=== PATIENT | male | born 2000 | race Caucasian/White ===

== ENCOUNTER 2024-07-17 13:11 | Emergency (ER) | payer OTHER, SELFPAY ==
[2024-07-17 13:26] VITALS: BP 121/68; PULSE 78; RESP 17; TEMP 36.4; O2SAT 98; BMI 32.1
--- NOTE | 2024-07-17 13:27 | ED.WOUNDLAC ---
HPI - Wound/Laceration <Delia Chu PA-C - Last Filed: 07/17/24 17:43> General Chief Complaint: Wound/Laceration Stated Complaint: hand laceration Time Seen by Provider: 07/17/24 13:25 History of Present Illness HPI narrative: Patient is a very pleasant 24-year-old male presents to the emergency room department today with a laceration of the base of his right thumb. Patient right-hand dominant. Patient was washing dishes today. He was holding a glass in his right hand, was very slippery and wet and so be. He had quite the batteryman on it. He went to wash it on the inside when instep shadowing in his hand. He sustained a laceration to the base of his right thumb. And then a superficial laceration on his left thumb. The hand was washed prior to being seen here in the emergency room department. He has no other physical complaints. Up-to-date in his immunizations. Related Data Allergies Allergy/AdvReac Type Severity Reaction Status Date / Time No Known Drug Allergies Allergy Verified 07/17/24 13:31 Review of Systems <Delia Chu PA-C - Last Filed: 07/17/24 17:43> Review of Systems Narrative: negative except as above Integumentary/Breasts Comments: Skin laceration at the base of the right thumb. Small superficial laceration the tip of the left thumb. Patient History <Delia Chu PA-C - Last Filed: 07/17/24 17:43> Social History Smoking Status: Never smoker Exam <Delia Chu PA-C - Last Filed: 07/17/24 17:43> Initial Vital Signs Initial Vital Signs: Vital Signs Temperature 97.5 F L 07/17/24 13:26 Pulse Rate 78 07/17/24 13:26 Respiratory Rate 17 07/17/24 13:26 Blood Pressure 121/68 07/17/24 13:26 Pulse Oximetry 98 07/17/24 13:26 Oxygen Delivery Method Room Air 07/17/24 13:26 Const General: cooperative, healthy appearing, comfortable, well developed, well groomed and anxious Eyes Pupils: PERRL EOM: EOM intact bilaterally Skin Other: Superficial laceration to the distal aspect of the left thumb does not need to be sutured Laceration to the base of the right thumb, 2 cm in length. Not full-thickness. Does not involve the tendon or the ligaments. Neuro General: patient alert, patient awake, patient oriented x3 and gait normal Cognition: normal cognition Speech: speech normal Gait: normal gait Extrem Other: Range of motion, strength, pulses, cap refill is preserved in the upper and lower extremities. Examined the right hand, range of motion of the hand is preserved. Cap refill is preserved. Pulses are present. Patient can extend and flex the thumb. No numbness no tingling. Pulses are present. Patient can extend the thumb. There is no numbness there is no tingling noted on exam. Psych Appearance: grossly normal Mental Status: mental status grossly normal Speech and Movement: speech and movement normal Mood: congruent mood Affect: normal affect Attitude: cooperative Thought Process: normal Thought Content: normal Judgment: judgment good <Burke Peralta DO - Last Filed: 07/17/24 17:54> Initial Vital Signs Initial Vital Signs: Vital Signs Temperature 97.5 F L 07/17/24 13:26 Pulse Rate 78 07/17/24 13:26 Respiratory Rate 17 07/17/24 13:26 Blood Pressure 121/68 07/17/24 13:26 Pulse Oximetry 98 07/17/24 13:26 Oxygen Delivery Method Room Air 07/17/24 13:26 Procedures <HENRY Coffey Last Filed: 07/17/24 17:43> Laceration Repair Laceration 1: Time of procedure: 14:30 Site: hand (Base of right thumb) Side (If applicable): right Size (cm): 2 Description: linear Depth: simple, single layer Local Anesthetic: lidocaine 1% Amount of anesthesia used (mL): 5 Skin layer closed with: vicryl Skin layer suture size: 5-0 Number of sutures: 1 Technique: running Number of sutures: 1 Course <HENRY Coffey Last Filed: 07/17/24 17:43> Orders Ordered: Discontinued Medications Cefazolin Sodium (Cephalexin 250 Mg Cap Prepack) 1 bottle MISC DIRECTED ONE Stop: 07/17/24 17:33 Lidocaine HCl (Lidocaine 1% 20 Ml) 3 ml SUBCUT NOW ONE Stop: 07/17/24 13:35 Last Admin: 07/17/24 14:04 Dose: 3 ml Documented By: SB Vital Signs Vital signs: Vital Signs - 8 hr 07/17/24 13:26 Temperature 97.5 F L Pulse Rate 78 Respiratory Rate 17 Blood Pressure 121/68 Pulse Oximetry 98 Oxygen Delivery Method Room Air Reviewed <Burke Peralta DO - Last Filed: 07/17/24 17:54> Orders Ordered: Discontinued Medications Cefazolin Sodium (Cephalexin 250 Mg Cap Prepack) 1 bottle MISC DIRECTED ONE Stop: 07/17/24 17:33 Lidocaine HCl (Lidocaine 1% 20 Ml) 3 ml SUBCUT NOW ONE Stop: 07/17/24 13:35 Last Admin: 07/17/24 14:04 Dose: 3 ml Documented By: SB Vital Signs Vital signs: Vital Signs - 8 hr 07/17/24 13:26 Temperature 97.5 F L Pulse Rate 78 Respiratory Rate 17 Blood Pressure 121/68 Pulse Oximetry 98 Oxygen Delivery Method Room Air MDM - Wound/Laceration <Delia Chu PA-C - Last Filed: 07/17/24 17:43> [facility] Narrative Medical decision making narrative: Pleasant 24-year-old male presents to the emergency department with a laceration to the base of his right thumb after injuring himself after a glass shattered while he was washing it. Up-to-date on his immunizations. No other physical complaints. Laceration repair as above. Splinted. Supportive therapy education ED precautions. Differential diagnosis; thumb laceration. Discharge Plan Departure Patient Disposition: Home Clinical Impression: Laceration Instructions: How to Care for a Laceration After Repair, DI for Laceration Repair Activity Restrictions/Additional Instructions: Keep the area clean and dry. Splint for comfort. Stitches need to come out in 7-10 days. Elevated above your heart so does not throb. [id number] ibuprofen and Tylenol for pain. Watch for any signs of infection. Stitches can be taken out in your primary care doctor's office, urgent care, walk-in clinic, or the emergency room department. You have a running stitch placed in your thumb. You can wash the hand. Reapply the splint and secured with Coban. Elevate the hand above your heart, the more you allow the hand to hang the more will throb and the more uncomfortable will be. Referrals: Provider,Driss MCGARRY [Primary Care Provider] - Stand Alone Forms: Patient Portal/API ED Sign-out <Burke Peralta, - Last Filed: 07/17/24 17:54> Cosign ED Attending Cosignature Attestation: Dr Peralta Co-Sign Statement: I was available for consultation during this patient's emergency department visit. This chart is signed by myself for administrative purposes only. I did not have direct contact with this patient during this visit. They were seen independently by the APC.
--- NOTE | 2024-07-17 13:43 | PC.NURSE ---
Laceration to right thumb. Smaller laceration x3 noted to left hand. Pt states glass was broken in the sink that he was not aware of. Pt thinks his tetanus is UTD.
[2024-07-17] MEDS: LIDOCAINE 1% 20 ML 3 ML SUBCUT (14:04)
== END 2024-07-17 14:40 | disposition home or self-care (01) ==
PROVIDERS: Emergency Provider Physician Assistant
DX: S61.011A Laceration without foreign body of right thumb without damage to nail, initial encounter (principal); W25.XXXA Contact with sharp glass, initial encounter
CPT/HCPCS: 12001; 29130; 99281; 99282; 99283